=== PATIENT | female | born 1965 ===

== ENCOUNTER → 2024-01-19 09:09 | Outpatient (POV) | payer MEDICARE, MEDICAID, SELFPAY ==
[2024-01-19 09:24] VITALS: BP 134/80; PULSE 98; RESP 18; O2SAT 92; BMI 29.7
--- NOTE | 2024-01-19 10:15 | A.OFFVIS_ITS ---
HPI Data of Consult Patient: new to practice Consult date: 01/19/24 Requesting Physician: Vanessa Ervin APRN Consult Narrative Reason for consult: Chronic pain, bilateral hip pain, low back pain, cancer History of present illness: Ms. Rico is a 58 year old female who presents today as a new patient. She is a referral from [facility] out of [facility]. Today she rates her pain an 8 out of 10. Patient states that she has pain from her hip to her toes and describes it as a chronic issue. Patient does state that she did previously have breast cancer and had a double mastectomy but that she also has leukemia. Patient states that she was diagnosed with degenerative disc in the past and that has had bilateral hip replacements but continues to have pain there as well. She states that she believes she is almost up to time for needing another right hip replacement as her last one was about 16 years ago. Patient does state in the past she has tried Tylenol and ibuprofen along with heat and ice and topicals with minimal relief. She states that she did have chiropractor therapy and physical therapy in the past however this made no difference and that injection therapy made everything worse. Patient was prescribed Percocet 10 mg 5 times a day from her last pain management facility. She is requesting that we take over this medication. Patient states that her cancer doctor gave her a 7-day prescription of this medication however told her that he could not write for this on a regular basis. Patient is also on gabapentin. Her Paramjit has been reviewed. CC: Vanessa Ervin APRN [facility] Disclaimer: The information contained in this section may have been updated after the patient was seen, as this information can be updated by other users. Medical History (Updated 01/19/24 @ 10:20 by Vanessa Ervin APRN) Breast cancer Depression Diabetes HLD (hyperlipidemia) Surgical History (Updated 01/19/24 @ 09:54 by Larisa Ye RN) H/O bilateral mastectomy History of total hip replacement Hx of removal of ovary Family History (Updated 01/19/24 @ 09:53 by Larisa Ye RN) Other Cancer Social History (Updated 01/19/24 @ 09:57 by Larisa Ye, ERNESTINA) Smoking Status: Never smoker alcohol intake: never current occupational status: other Travel in the last 8 weeks: None Review of Systems Review of Systems Review of systems:: pertinent systems reviewed and negative unless documented b elow Review of systems (narrative): Review of Systems: General: No recent weight changes, no fever, no sleep disturbances Respiratory: No cough, no shortness of air, no recurring pulmonary infections Cardiovascular/peripheral vascular: No chest pain, no palpitations, no edema, no shortness of breath Gastrointestinal: No new onset incontinence, normal bowel movements reported Genitourinary: No new onset incontinence Musculoskeletal: Low back pain, neck pain, bilateral hip pain, overall Psychiatric: [Normal mood/affect] Neurological: [Denies weakness in extremities], [denies balance issues] Meds Home Medications and Allergies Home Medications Medication Instructions Recorded Confirmed Type gabapentin 300 mg capsule 300 mg PO DIRECTED Pain 01/19/24 01/19/24 History hydroxyurea 500 mg capsule 500 mg PO DIRECTED CANCER 01/19/24 01/19/24 History hydroxyurea 500 mg capsule 500 mg PO DIRECTED CANCER 01/19/24 01/19/24 History metoprolol succinate 25 mg 25 mg PO DAILY BLOOD PRESSURE 01/19/24 01/19/24 History tablet,extended release 24 hr oxycodone-acetaminophen 10 mg-325 1 tab PO DIRECTED Pain 01/19/24 01/19/24 History mg tablet rosuvastatin 10 mg tablet 10 mg PO DAILY Cholesterol 01/19/24 01/19/24 History tizanidine 4 mg tablet 4 mg PO DIRECTED Pain 01/19/24 01/19/24 History New Prescriptions to Start Prescriptions: Allergies Allergy/AdvReac Type Severity Reaction Status Date / Time morphine Allergy Verified 01/19/24 09:25 tramadol Allergy Verified 01/19/24 09:25 vancomycin Allergy Verified 01/19/24 09:25 Objective Vital signs: Pulse Resp BP Pulse Ox O2 Del Method 98 H 18 134/80 92 L Room Air 01/19/24 09:24 01/19/24 09:24 01/19/24 09:24 01/19/24 09:24 01/19/24 09:24 Narrative: Physical Exam: General: Alert and oriented x3, no acute distress, pleasant and cooperative Lungs: Respirations even and unlabored, symmetrical chest expansion Eyes: PERRL Musculoskeletal: Flexion and extension of lumbar [spine] somewhat guarded secondary to pain, [antalgic gait noted] Neurological: Speech clear, no gross sensory deficit Assessment and Plan *Assessment and plan (1) Chronic pain syndrome: Status: Acute Category: Medical Code(s): G89.4 - Chronic pain syndrome (2) Low back pain: Status: Acute Qualifiers: Back pain laterality: bilateral Chronicity: chronic Sciatica presence: without sciatica Qualified Code(s): M54.50 - Low back pain, unspecified; G89.29 - Other chronic pain Category: Medical Code(s): M54.50 - Low back pain, unspecified (3) Neck pain: Status: Acute Category: Medical Code(s): M54.2 - Cervicalgia (4) Hip pain, bilateral: Status: Acute Category: Medical Code(s): M25.551 - Pain in right hip; M25.552 - Pain in left hip Plan Patient is experiencing significant pain throughout multiple locations. Patient does have a history of breast cancer. I have discussed with patient that we are an interventional pain clinic and we do not immediately take over medication management. I have counseled the patient that I will discuss with Dr. Ramos regarding her care. I have counseled the patient that she may have beneficial relief with a intrathecal pain pump trial in the future. Risk and benefits were discussed with the patient and educational handouts were given. At this time the patient states that she is interested in this option but she would like a prescription of her pain medication leading up to this. Patient was given a 1 month follow-up for reevaluation of symptoms and plan of care. Addendum: I have spoken with Dr. Skaggs regarding patient. unfortunately due to previous history of taking her medication not as prescribed and failing pill counts will not take over this prescription. Dr. Ramos has confirmed that intrathecal pain pump trial is always an option if she would like to proceed forward with this. We will reach back out to the patient and see what she would like to do. Patient has been instructed to contact the clinic with any concerns before the next appointment. Dr. Ramos has reviewed this note and agrees with this plan of care. This note was dictated using voice recognition software and make contain errors or omissions.
== END ==
PROVIDERS: PCP Nurse Practitioner Family; Visit Provider Nurse Practitioner Family
DX: G89.4 Chronic pain syndrome (principal); M54.50 Low back pain, unspecified; M54.2 Cervicalgia; M25.551 Pain in right hip; M25.552 Pain in left hip
CPT/HCPCS: 99202; G0463